=== PATIENT | female | born 1955 | race Caucasian/White ===

== ENCOUNTER 2019-10-25 12:15 | Day surgery (SDC) | payer OTHER ==
[2019-10-23 11:22] VITALS: BMI 24.7
[2019-10-25] MEDS ORDERED: oxyCODONE HCL 5 MG TABLET PO PRN ×2 (12:16→14:55)
[2019-10-25] MEDS ORDERED: ONDANSETRON 4 MG/2 ML VIAL IVPUSH PRN (12:16)
[2019-10-25] MEDS ORDERED: PROMETHAZINE HCL 25 MG/1 ML VIAL IVPUSH PRN (12:16)
[2019-10-25] MEDS ORDERED: LACTATED RINGERS SOLUTION 1,000 ML IV SCH (12:30)
[2019-10-25] MEDS ORDERED: ROPIVACAINE HCL 0.5% 30ML VIAL ONE (12:36)
[2019-10-25] MEDS ORDERED: MIDAZOLAM HCL 2 MG/2 ML SINGLE DOSE VIAL ONE (12:36)
[2019-10-25] MEDS ORDERED: PROPOFOL 20 ML ONE ×2 (13:31→13:36)
[2019-10-25] MEDS ORDERED: ACETAMINOPHEN INJECTION 100 ML IVPB ONE (14:56)
[2019-10-25] MEDS ORDERED: ACETAMINOPHEN 1000 MG/100 ML VIAL (NON FORMULARY) IVPB ONE (14:57)
[2019-10-25] MEDS ORDERED: LABETALOL HCL 5 MG/1 ML (100MG/20 ML VIAL) IVPUSH ONE (14:59)
[2019-10-25] MEDS ORDERED: LABETALOL HCL 5 MG/1 ML (100MG/20 ML VIAL) ONE (14:59)
[2019-10-25] MEDS ORDERED: HYDROmorphone HCl 2 MG/ML VIAL IVPUSH ONE (15:02)
[2019-10-25] MEDS ORDERED: HYDROmorphone HCL 0.5 MG/0.5 ML SYRINGE ONE ×3 (15:05→15:21)
--- NOTE | 2019-10-25 15:08 | OP ---
DATE OF OPERATION: 10/25/2019 PREOPERATIVE DIAGNOSIS: Right comminuted displaced distal radius fracture. POSTOPERATIVE DIAGNOSIS: Right comminuted displaced distal radius fracture. OPERATIVE PROCEDURE: 1. Open reduction internal fixation of right comminuted intraarticular displaced distal radius fracture with internal fixation of 3 or more fragments. 2. Right brachioradialis tenotomy. SURGEON: Arias Roa MD GIS MAPPING TECHNICIAN: ROSA MARIA Jimenez ANESTHESIA: Regional and general. COMPLICATIONS: None. ESTIMATED BLOOD LOSS: Minimal. INDICATIONS FOR PROCEDURE: Patient presented with the above finding, indicated for operative treatment. Risks, benefits and alternatives were discussed with her at length. Proper informed consent was obtained. PROCEDURE: After proper identification of patient and correct operative site, patient was brought to the operating room, placed supine on the table. Bony prominences were well padded. General anesthesia and regional anesthesia were given. Right upper extremity was prepped and draped in usual sterile fashion. Well-padded tourniquet was placed over the sterile prep. Intravenous antibiotics were given. Timeout procedure was performed. Esmarch bandage to exsanguinate right upper extremity. Tourniquet was inflated to 250 mmHg. Longitudinal incision made in the volar aspect of the wrist. Incision was taken sharply through skin with blunt and sharp dissection through subcutaneous tissues. Flexor carpi radialis tendon along with the contents of the carpal canal was bluntly and gently retracted in an ulnarward direction for the remainder of the procedure. Pronator quadratus was found to be ruptured and was elevated off the distal radius. Fracture was found to be highly displaced and comminuted with an intraarticular component. Brachioradialis tenotomy was necessary to release the radiostyloid fragments. This was done in a subperiosteal fashion. Once this was done, the fracture was able to be reduced and held with an Arthrex distal radius locking plate with distal locking screws and proximal bicortical screws. This provided secure stable fixation confirmed radiographically including placement and sizing of all hardware. Scapholunate interval and distal radioulnar joint were found to be stable. The wound was irrigated and repaired in layers including the pronator quadratus with 4-0 Vicryl and 4-0 Monocryl sutures. Steri-Strips, sterile dressings and a volar wrist splint were placed. Patient was reversed from anesthesia, brought to recovery room in stable condition. Estuardo Boykin, the cement tester assistant, was critical throughout the procedure in holding reduction while hardware was placed and this procedure could not have been performed without a skilled operative cement tester assistant. ARIAS ROA M.D. NICK/[id number]
[2019-10-25] MEDS: HYDROmorphone HCL 0.5 MG/0.5 ML SYRINGE ONE ×2 (15:21→15:34)
[2019-10-25] MEDS ORDERED: BUPIVACAINE HCL/PF 2.5 MG/ML - 30 ML VIAL IJ ONE (15:30)
[2019-10-25 16:59] VITALS: TEMP 98.1
[2019-10-25 17:55] VITALS: BP 130/72; PULSE 69
== END 2019-10-25 18:00 | disposition home or self-care (01) ==
LOC: FASU 12:15
PROVIDERS: ATTEND Orthopaedic Surgery Hand Surgery
PROC: 0LN50ZZ Release Right Lower Arm and Wrist Tendon, Open Approach (ICD-10-PCS; 2019-10-25)
PROC: 0PSH04Z Reposition Right Radius with Internal Fixation Device, Open Approach (ICD-10-PCS; principal; 2019-10-25 13:46)
DX: S52.501A Unspecified fracture of the lower end of right radius, initial encounter for closed fracture (principal); X58.XXXA Exposure to other specified factors, initial encounter; Y93.9 Activity, unspecified; Y92.9 Unspecified place or not applicable
CPT/HCPCS: 73110-TC-RT-FY; 94760; J0131